=== PATIENT | male | born 1980 | race Caucasian/White ===

== ENCOUNTER 2017-07-05 21:40 | Emergency (ER) | payer MEDICARE ==
[~2017-07-05] VITALS: Ht 157.5 cm; Wt 60.0 kg
[2017-07-05] MEDS ORDERED: LEVI20TA39 (21:50)
[2017-07-05] MEDS ORDERED: METH10TA2 PO (21:50)
[2017-07-05] MEDS ORDERED: [UNRECOGNIZED DRUG - CODE] PO (21:50)
[2017-07-05] MEDS ORDERED: GABA-282 PO (21:50)
[2017-07-05] MEDS ORDERED: VITA200016 PO (21:50)
[2017-07-05] MEDS ORDERED: TIZA2TA PO (21:50)
[2017-07-05] MEDS ORDERED: CLON1TAB PO (21:50)
[2017-07-05] MEDS ORDERED: PERCOCET 5MG/325MG TAB PO ONE (23:00)
[2017-07-06] MEDS ORDERED: D5W/0.9% SODIUM CHLORIDE 1,000 ML IV SCH
[2017-07-06 00:14] LABS: BASO # 0.1 K/mm3 (0.0-0.2); BASO % 0.5 % (0.0-1.0); EOS # 0.4 K/mm3 (0.0-0.50); LARGE UNSTAINED CELL # 0.2 K/mm3 (0.0-0.4); LARGE UNSTAINED CELL % 1.6 % (0.0-4.0); LYMPH # 2.6 K/mm3 (1.5-4.5); LYMPH % 17.7 % (24.0-44.0); MEAN CORPUSCULAR HEMOGLOBIN 33.2 pg (27.0-33.0); MEAN CORPUSCULAR HGB CONC 33.9 g/dl (32.0-36.5); MEAN CORPUSCULAR VOLUME 97.9 fl (80.0-96.0); MONO # 0.6 K/mm3 (0.0-0.8); MONO % 4.5 % (0.0-5.0); NEUTROPHILS # 9.7 K/mm3 (1.8-7.7); NEUTROPHILS % 72.8 % (36.0-66.0); PLATELET COUNT, AUTOMATED 190 k/mm3 (150-450); RED CELL DISTRIBUTION WIDTH 11.9 % (11.5-14.5); WHITE BLOOD COUNT 13.4 K/mm3 (4.0-10.0)
[2017-07-06] MEDS ORDERED: MORPHINE 4 MG/ML 1ML SYRINGE IV ONE (00:30)
[2017-07-06 00:34] LABS: INR 0.99
[2017-07-06 00:35] LABS: ANION GAP 5 MEQ/L (8-16); BLOOD UREA NITROGEN 11 MG/DL (7-18); CALCIUM LEVEL 8.9 MG/DL (8.5-10.1); CARBON DIOXIDE LEVEL 31 MEQ/L (21-32); CHLORIDE LEVEL 103 MEQ/L (98-107); GLOMERULAR FILTRATION RATE > 60.0 (>60); GLUCOSE, FASTING 122 MG/DL (70-105); SODIUM LEVEL 139 MEQ/L (136-145)
[2017-07-06] MEDS ORDERED: VITMTA PO (00:55)
[2017-07-06] MEDS ORDERED: FISH1000 PO (00:55)
[2017-07-06] MEDS ORDERED: HYDROmorphone HCL 1 MG/ML SYRINGE (J1170) IV ONE (02:15)
[2017-07-06 02:31] VITALS: BP 115/68
--- NOTE | 2017-07-06 08:11 | REP ---
Right femur five views: There is a spiral fracture of the proximal shaft. There is overlapping of the fracture fragments and there is medial angulation at the fracture site. Signed by Chele Sanchez MD 07/06/2017 08:01 A
--- NOTE | 2017-07-06 08:14 | REP ---
AP pelvis: There is a spiral fracture of the proximal right femoral shaft. The right and left hips are otherwise unremarkable. No pelvic fracture is identified. There is an osteochondroma arising from the supra-acetabular area on the right. Significant bowel gas artifact superimposes the sacrum sacrum is not visible. Impression: Spiral fracture of the proximal right femoral shaft. Osteochondroma of the right iliac wing. Signed by Chele Sanchez MD 07/06/2017 08:04 A
== END 2017-07-06 02:35 | disposition short-term general hospital (02) ==
LOC: M ED 21:40
DX: S72.341A Displaced spiral fracture of shaft of right femur, initial encounter for closed fracture (principal); X50.1XXA Overexertion from prolonged static or awkward postures, initial encounter; Y92.89 Other specified places as the place of occurrence of the external cause; Y93.89 Activity, other specified; Y99.8 Other external cause status; Z99.3 Dependence on wheelchair; Z87.81 Personal history of (healed) traumatic fracture; Z87.828 Personal history of other (healed) physical injury and trauma; Z79.899 Other long term (current) drug therapy; Z88.8 Allergy status to other drugs, medicaments and biological substances
CPT/HCPCS: 72170; 73552; 80048; 85025; 85610; 85730; 86850; 86900; 86901; 96374; 96375; 99284; J1170